=== PATIENT | male | born 1960 | race Caucasian/White ===

== ENCOUNTER 2022-06-18 03:06 | Outpatient (CLI) | payer MEDICAID, SELFPAY ==
[2022-06-18 13:35] LABS: Abs Immature Grans 0.03 10^3/uL (0.0-0.06); Absolute Basophil Count 0.06 10^3/uL (0.0-0.2); Absolute Eosinophil Count 0.32 10^3/uL (0.0-0.7); Absolute Lymphocyte Count 1.24 10^3/uL (1.2-3.4); Absolute Monocyte Count 1.08 10^3/uL (0.1-0.8); Absolute Neutrophil Count 7.35 10^3/uL (1.2-6.7); Basophils % 0.6; Eosinophils % 3.2; HCT 36.4 % (40.0-50.0); HGB 11.1 g/dL (13.5-17.5); Immature Grans % 0.3; Lymphocytes % 12.3; MCH 26.6 pg (27.0-33.0); MCHC 30.5 % (32.0-36.0); MCV 87 fL (80-95); MPV 9.4 fL (8.0-11.0); Monocytes % 10.7; Neutrophils % 72.9; Platelet Count 399 10^3/uL (130-400); RBC 4.17 10^6/uL (4.36-5.78); RDW 13.5 % (11.8-14.1); RDW-SD 43.4 fL; WBC 10.08 10^3/uL (4.4-10.8)
[2022-06-18 14:01] LABS: ALT 16 U/L (16-63); AST 22 U/L (15-37); Albumin 2.5 g/dL (3.4-5.0); Alkaline Phosphatase 105 U/L (46-116); Anion Gap 0.6 mmol/L (3-11); BUN 22 mg/dL (7-18); Bilirubin, Total 0.2 mg/dL (0.2-1.0); CO2 36.4 mmol/L (21.0-32.0); CREATININE 0.9 mg/dL (0.70-1.30); Calcium 8.4 mg/dL (8.5-10.1); Chloride 101 mmol/L (98-107); Estimated GFR 95.97 (mL/min/1.73m2); FREE T4 0.97 ng/dL (0.76-1.46); Glucose 196 mg/dL (74-106); Magnesium 2.1 mg/dL (1.8-2.4); Potassium 3.9 mmol/L (3.5-5.1); Sodium 138 mmol/L (136-145); TSH 2.33 uIU/mL (0.36-3.74); Total Protein 7.1 g/dL (6.4-8.2)
== END 2022-06-18 03:07 | disposition home or self-care (01) ==
LOC: LBO 03:06
PROVIDERS: Visit Provider Internal Medicine Medical Oncology
DX: C34.92 Malignant neoplasm of unspecified part of left bronchus or lung (principal); Z79.899 Other long term (current) drug therapy
CPT/HCPCS: 36415; 80053; 83735; 84439; 84443; 85025

== ENCOUNTER 2022-07-09 03:07 | Outpatient (CLI) | payer MEDICAID, SELFPAY ==
[2022-07-09 09:34] LABS: Abs Immature Grans 0.04 10^3/uL (0.0-0.06); Absolute Basophil Count 0.09 10^3/uL (0.0-0.2); Absolute Lymphocyte Count 1.55 10^3/uL (1.2-3.4); Absolute Monocyte Count 0.83 10^3/uL (0.1-0.8); Absolute Neutrophil Count 7.97 10^3/uL (1.2-6.7); Basophils % 0.8; Eosinophils % 3.9; HCT 37.2 % (40.0-50.0); HGB 11.3 g/dL (13.5-17.5); Immature Grans % 0.4; Lymphocytes % 14.2; MCH 24.9 pg (27.0-33.0); MCHC 30.4 % (32.0-36.0); MCV 82 fL (80-95); MPV 9.3 fL (8.0-11.0); Monocytes % 7.6; Neutrophils % 73.1; Platelet Count 439 10^3/uL (130-400); RBC 4.54 10^6/uL (4.36-5.78); RDW-SD 41.2 fL
[2022-07-09 09:35] LABS: Absolute Eosinophil Count 0.43 10^3/uL (0.0-0.7)
[2022-07-09 10:00] LABS: ALT 17 U/L (16-63); AST 19 U/L (15-37); Albumin 3.1 g/dL (3.4-5.0); Alkaline Phosphatase 76 U/L (46-116); Anion Gap 3.7 mmol/L (3-11); BUN 27 mg/dL (7-18); Bilirubin, Total 0.3 mg/dL (0.2-1.0); CO2 33.3 mmol/L (21.0-32.0); Calcium 9.3 mg/dL (8.5-10.1); Chloride 101 mmol/L (98-107); Estimated GFR 84.57 (mL/min/1.73m2); FREE T4 0.96 ng/dL (0.76-1.46); Glucose 144 mg/dL (74-106); Potassium 3.7 mmol/L (3.5-5.1); Sodium 138 mmol/L (136-145); TSH 1.98 uIU/mL (0.36-3.74)
== END 2022-07-09 03:08 | disposition home or self-care (01) ==
LOC: LBO 03:07
PROVIDERS: Visit Provider Internal Medicine Medical Oncology
DX: C34.92 Malignant neoplasm of unspecified part of left bronchus or lung (principal)
CPT/HCPCS: 36415; 80053; 83735; 84439; 84443; 85025

== ENCOUNTER 2022-09-10 14:39 | Outpatient (CLI) | payer MEDICAID, SELFPAY ==
--- NOTE | 2022-09-10 13:30 | DI.RAD_ITS ---
Exam(s) XR CHEST 2V PA LATERAL EXAM: XR CHEST 2V PA LATERAL CLINICAL HISTORY: LT LUNG CA, SOB, R06.02 TECHNIQUE: 2D digital imaging was performed of the chest. Two images were obtained. PA and lateral views were obtained. COMPARISON: No exams were available for comparison FINDINGS: MEDIASTINUM: There is right perihilar prominence. While this may represent the normal pulmonary vasc ulature, a central mass or adenopathy cannot be excluded. HEART: Normal. PULMONARY VASCULATURE: Normal. LUNGS: Linear infiltrate is seen in the left lingula. PLEURAL SPACE: No pleural effusion or pneumothorax. BONE:Within normal limits for the patient's age. OTHER FINDINGS:Normal. IMPRESSION: 1. There is a linear infiltrate lateral to the heart in the left lung base. This may represent atele ctasis, scarring or pneumonia. Please correlate clinically. 2. Right hilar prominence. While this may represent normal pulmonary vasculature, a central mass or adenopathy cannot be excluded. CT scan of the chest should be considered for further evaluation. DATA REPOSITORY: RADIATION DOSE DELIVERED:
== END 2022-09-10 14:59 ==
PROVIDERS: Visit Provider Nurse Practitioner Family
DX: R06.02 Shortness of breath (principal); R91.8 Other nonspecific abnormal finding of lung field
CPT/HCPCS: 71046

== ENCOUNTER 2022-10-01 04:50 | Outpatient (CLI) | payer MEDICAID, SELFPAY ==
[2022-10-01 09:58] LABS: Abs Immature Grans 0.03 10^3/uL (0.0-0.06); Absolute Basophil Count 0.05 10^3/uL (0.0-0.2); Absolute Eosinophil Count 0.24 10^3/uL (0.0-0.7); Absolute Neutrophil Count 5.75 10^3/uL (1.2-6.7); Basophils % 0.6; Eosinophils % 2.7; HCT 48.3 % (40.0-50.0); HGB 14.9 g/dL (13.5-17.5); Immature Grans % 0.3; Lymphocytes % 22.3; MCH 24.1 pg (27.0-33.0); MCHC 30.8 % (32.0-36.0); MCV 78 fL (80-95); MPV 9.8 fL (8.0-11.0); Neutrophils % 64.1; Platelet Count 260 10^3/uL (130-400); RBC 6.17 10^6/uL (4.36-5.78); RDW 15.3 % (11.8-14.1); RDW-SD 42.8 fL; WBC 8.97 10^3/uL (4.4-10.8)
[2022-10-01 10:33] LABS: ALT 19 U/L (16-63); AST 18 U/L (15-37); Albumin 3.4 g/dL (3.4-5.0); Alkaline Phosphatase 85 U/L (46-116); Anion Gap 6.3 mmol/L (3-11); BUN 34 mg/dL (7-18); Bilirubin, Total 0.4 mg/dL (0.2-1.0); CO2 28.7 mmol/L (21.0-32.0); CREATININE 1.2 mg/dL (0.70-1.30); Calcium 9.1 mg/dL (8.5-10.1); Chloride 106 mmol/L (98-107); Estimated GFR 67.95 (mL/min/1.73m2); Glucose 188 mg/dL (74-106); Potassium 4.4 mmol/L (3.5-5.1); Sodium 141 mmol/L (136-145); TSH 1.78 uIU/mL (0.36-3.74)
== END 2022-10-01 04:51 | disposition home or self-care (01) ==
PROVIDERS: Visit Provider Internal Medicine Medical Oncology
DX: C34.92 Malignant neoplasm of unspecified part of left bronchus or lung (principal)
CPT/HCPCS: 36415; 80053; 83735; 84439; 84443; 85025

== ENCOUNTER 2022-10-22 02:21 | Outpatient (CLI) | payer MEDICAID, SELFPAY ==
[2022-10-22 10:05] LABS: Abs Immature Grans 0.02 10^3/uL (0.0-0.06); Absolute Basophil Count 0.06 10^3/uL (0.0-0.2); Absolute Lymphocyte Count 1.92 10^3/uL (1.2-3.4); Absolute Monocyte Count 0.76 10^3/uL (0.1-0.8); Absolute Neutrophil Count 6.73 10^3/uL (1.2-6.7); Basophils % 0.6; Eosinophils % 3.1; HCT 46.8 % (40.0-50.0); HGB 14.5 g/dL (13.5-17.5); Immature Grans % 0.2; Lymphocytes % 19.6; MCH 24.5 pg (27.0-33.0); MCV 79 fL (80-95); MPV 9.9 fL (8.0-11.0); Monocytes % 7.8; Neutrophils % 68.7; Platelet Count 276 10^3/uL (130-400); RBC 5.92 10^6/uL (4.36-5.78); RDW 15.3 % (11.8-14.1); RDW-SD 43.4 fL; WBC 9.79 10^3/uL (4.4-10.8)
[2022-10-22 10:59] LABS: ALT 19 U/L (16-63); AST 15 U/L (15-37); Albumin 3.2 g/dL (3.4-5.0); Alkaline Phosphatase 110 U/L (46-116); Anion Gap 4.5 mmol/L (3-11); BUN 21 mg/dL (7-18); Bilirubin, Total 0.4 mg/dL (0.2-1.0); CO2 29.5 mmol/L (21.0-32.0); CREATININE 1.2 mg/dL (0.70-1.30); Calcium 8.7 mg/dL (8.5-10.1); Chloride 101 mmol/L (98-107); Estimated GFR 67.95 (mL/min/1.73m2); Glucose 343 mg/dL (74-106); Magnesium 1.8 mg/dL (1.8-2.4); Potassium 4.3 mmol/L (3.5-5.1); Sodium 135 mmol/L (136-145); TSH 2.03 uIU/mL (0.36-3.74); Total Protein 7.4 g/dL (6.4-8.2)
[2022-10-22 12:10] LABS: FREE T4 0.85 ng/dL (0.76-1.46)
== END 2022-10-22 02:22 | disposition home or self-care (01) ==
LOC: LBO 02:21
PROVIDERS: Visit Provider Internal Medicine Medical Oncology
DX: C34.92 Malignant neoplasm of unspecified part of left bronchus or lung (principal)
CPT/HCPCS: 36415; 80053; 83735; 84439; 84443; 85025

== ENCOUNTER 2022-11-12 04:27 | Outpatient (CLI) | payer MEDICAID, SELFPAY ==
[2022-11-12 10:11] LABS: Abs Immature Grans 0.02 10^3/uL (0.0-0.06); Absolute Basophil Count 0.07 10^3/uL (0.0-0.2); Absolute Eosinophil Count 0.25 10^3/uL (0.0-0.7); Absolute Lymphocyte Count 1.98 10^3/uL (1.2-3.4); Absolute Neutrophil Count 5.75 10^3/uL (1.2-6.7); Basophils % 0.8; Eosinophils % 2.8; HGB 14.7 g/dL (13.5-17.5); Immature Grans % 0.2; Lymphocytes % 22.1; MCH 24.3 pg (27.0-33.0); MCHC 30.6 % (32.0-36.0); MCV 79 fL (80-95); MPV 9.8 fL (8.0-11.0); Neutrophils % 64.1; Platelet Count 274 10^3/uL (130-400); RBC 6.06 10^6/uL (4.36-5.78); WBC 8.97 10^3/uL (4.4-10.8)
[2022-11-12 10:35] LABS: ALT 19 U/L (16-63); AST 11 U/L (15-37); Albumin 3.3 g/dL (3.4-5.0); Alkaline Phosphatase 92 U/L (46-116); Anion Gap 4.9 mmol/L (3-11); BUN 19 mg/dL (7-18); Bilirubin, Total 0.4 mg/dL (0.2-1.0); CO2 29.1 mmol/L (21.0-32.0); Calcium 8.9 mg/dL (8.5-10.1); Chloride 102 mmol/L (98-107); Estimated GFR 84.57 (mL/min/1.73m2); FREE T4 0.82 ng/dL (0.76-1.46); Glucose 274 mg/dL (74-106); Magnesium 2.1 mg/dL (1.8-2.4); Potassium 4.1 mmol/L (3.5-5.1); Sodium 136 mmol/L (136-145); TSH 2.32 uIU/mL (0.36-3.74); Total Protein 7.6 g/dL (6.4-8.2)
== END 2022-11-12 04:28 | disposition home or self-care (01) ==
LOC: LBO 04:27
PROVIDERS: Visit Provider Internal Medicine Medical Oncology
DX: C34.92 Malignant neoplasm of unspecified part of left bronchus or lung (principal)
CPT/HCPCS: 36415; 80053; 83735; 84439; 84443; 85025

== ENCOUNTER 2022-12-03 03:01 | Outpatient (CLI) | payer MEDICAID, SELFPAY ==
[2022-12-03 12:28] LABS: Abs Immature Grans 0.03 10^3/uL (0.0-0.06); Absolute Basophil Count 0.08 10^3/uL (0.0-0.2); Absolute Lymphocyte Count 2.19 10^3/uL (1.2-3.4); Absolute Neutrophil Count 6.75 10^3/uL (1.2-6.7); Basophils % 0.8; HCT 49.2 % (40.0-50.0); HGB 15.7 g/dL (13.5-17.5); Immature Grans % 0.3; Lymphocytes % 21.6; MCH 25.7 pg (27.0-33.0); MCHC 31.9 % (32.0-36.0); MCV 80 fL (80-95); MPV 9.9 fL (8.0-11.0); Monocytes % 7.9; Neutrophils % 66.4; Platelet Count 254 10^3/uL (130-400); RBC 6.12 10^6/uL (4.36-5.78); RDW 14.6 % (11.8-14.1); RDW-SD 42.1 fL; WBC 10.15 10^3/uL (4.4-10.8)
[2022-12-03 12:55] LABS: ALT 24 U/L (16-63); AST 15 U/L (15-37); Albumin 3.6 g/dL (3.4-5.0); Alkaline Phosphatase 101 U/L (46-116); Anion Gap 5.4 mmol/L (3-11); BUN 25 mg/dL (7-18); Bilirubin, Total 0.5 mg/dL (0.2-1.0); CO2 30.6 mmol/L (21.0-32.0); CREATININE 1.1 mg/dL (0.70-1.30); Calcium 9.2 mg/dL (8.5-10.1); Chloride 101 mmol/L (98-107); Estimated GFR 75.43 (mL/min/1.73m2); FREE T4 0.83 ng/dL (0.76-1.46); Glucose 156 mg/dL (74-106); Magnesium 1.9 mg/dL (1.8-2.4); Sodium 137 mmol/L (136-145); TSH 3.49 uIU/mL (0.36-3.74); Total Protein 8.1 g/dL (6.4-8.2)
== END 2022-12-03 03:02 | disposition home or self-care (01) ==
LOC: LBO 03:01
PROVIDERS: Visit Provider Internal Medicine Medical Oncology
DX: C34.92 Malignant neoplasm of unspecified part of left bronchus or lung (principal)
CPT/HCPCS: 36415; 80053; 83735; 84439; 84443; 85025

== ENCOUNTER 2022-12-24 04:45 | Outpatient (CLI) | payer MEDICAID, SELFPAY ==
[2022-12-24 09:39] LABS: Abs Immature Grans 0.03 10^3/uL (0.0-0.06); Absolute Basophil Count 0.08 10^3/uL (0.0-0.2); Absolute Lymphocyte Count 1.97 10^3/uL (1.2-3.4); Absolute Monocyte Count 0.91 10^3/uL (0.1-0.8); Absolute Neutrophil Count 6.85 10^3/uL (1.2-6.7); Basophils % 0.8; HCT 47.5 % (40.0-50.0); HGB 15.2 g/dL (13.5-17.5); Immature Grans % 0.3; Lymphocytes % 19.4; MCH 26.2 pg (27.0-33.0); MCV 82 fL (80-95); MPV 10.1 fL (8.0-11.0); Neutrophils % 67.5; Platelet Count 255 10^3/uL (130-400); RBC 5.81 10^6/uL (4.36-5.78); RDW 14.3 % (11.8-14.1); RDW-SD 42.8 fL; WBC 10.14 10^3/uL (4.4-10.8)
[2022-12-24 10:08] LABS: ALT 21 U/L (16-63); AST 15 U/L (15-37); Albumin 3.4 g/dL (3.4-5.0); Alkaline Phosphatase 95 U/L (46-116); Anion Gap 7.8 mmol/L (3-11); BUN 17 mg/dL (7-18); Bilirubin, Total 0.6 mg/dL (0.2-1.0); CO2 29.2 mmol/L (21.0-32.0); CREATININE 1.1 mg/dL (0.70-1.30); Calcium 8.9 mg/dL (8.5-10.1); Chloride 101 mmol/L (98-107); Estimated GFR 75.43 (mL/min/1.73m2); FREE T4 0.77 ng/dL (0.76-1.46); Glucose 240 mg/dL (74-106); Magnesium 1.9 mg/dL (1.8-2.4); Potassium 4.1 mmol/L (3.5-5.1); Sodium 138 mmol/L (136-145); TSH 2.96 uIU/mL (0.36-3.74); Total Protein 7.4 g/dL (6.4-8.2)
== END 2022-12-24 04:46 | disposition home or self-care (01) ==
LOC: LBO 04:45
PROVIDERS: Visit Provider Internal Medicine Medical Oncology
DX: C34.92 Malignant neoplasm of unspecified part of left bronchus or lung (principal); Z79.899 Other long term (current) drug therapy
CPT/HCPCS: 36415; 80053; 83735; 84439; 84443; 85025

== ENCOUNTER 2023-01-14 03:46 | Outpatient (CLI) | payer MEDICAID, SELFPAY ==
[2023-01-14 10:21] LABS: Abs Immature Grans 0.03 10^3/uL (0.0-0.06); Absolute Basophil Count 0.06 10^3/uL (0.0-0.2); Absolute Eosinophil Count 0.26 10^3/uL (0.0-0.7); Absolute Lymphocyte Count 2.14 10^3/uL (1.2-3.4); Absolute Monocyte Count 0.86 10^3/uL (0.1-0.8); Absolute Neutrophil Count 6.63 10^3/uL (1.2-6.7); Basophils % 0.6; Eosinophils % 2.6; HCT 47.2 % (40.0-50.0); HGB 15.1 g/dL (13.5-17.5); Immature Grans % 0.3; Lymphocytes % 21.4; MCH 26.4 pg (27.0-33.0); MCV 82 fL (80-95); Monocytes % 8.6; Neutrophils % 66.5; Platelet Count 260 10^3/uL (130-400); RBC 5.73 10^6/uL (4.36-5.78); RDW 13.6 % (11.8-14.1); RDW-SD 40.4 fL; WBC 9.98 10^3/uL (4.4-10.8)
[2023-01-14 10:59] LABS: ALT 25 U/L (16-63); AST 18 U/L (15-37); Albumin 3.3 g/dL (3.4-5.0); Alkaline Phosphatase 88 U/L (46-116); Anion Gap 6.8 mmol/L (3-11); BUN 13 mg/dL (7-18); Bilirubin, Total 0.5 mg/dL (0.2-1.0); CO2 28.2 mmol/L (21.0-32.0); CREATININE 1.1 mg/dL (0.70-1.30); Calcium 8.8 mg/dL (8.5-10.1); Chloride 102 mmol/L (98-107); Estimated GFR 75.43 (mL/min/1.73m2); FREE T4 0.81 ng/dL (0.76-1.46); Glucose 199 mg/dL (74-106); Magnesium 1.8 mg/dL (1.8-2.4); Potassium 3.9 mmol/L (3.5-5.1); Sodium 137 mmol/L (136-145); Total Protein 7.4 g/dL (6.4-8.2)
== END 2023-01-14 03:47 | disposition home or self-care (01) ==
LOC: LBO 03:46
PROVIDERS: Visit Provider Internal Medicine Medical Oncology
DX: C34.92 Malignant neoplasm of unspecified part of left bronchus or lung (principal); Z79.899 Other long term (current) drug therapy
CPT/HCPCS: 36415; 80053; 83735; 84439; 84443; 85025

== ENCOUNTER 2023-02-06 03:59 | Outpatient (CLI) | payer MEDICAID, SELFPAY ==
[2023-02-06 09:35] LABS: Abs Immature Grans 0.02 10^3/uL (0.0-0.06); Absolute Basophil Count 0.07 10^3/uL (0.0-0.2); Absolute Eosinophil Count 0.25 10^3/uL (0.0-0.7); Absolute Lymphocyte Count 1.57 10^3/uL (1.2-3.4); Absolute Monocyte Count 0.84 10^3/uL (0.1-0.8); Absolute Neutrophil Count 6.15 10^3/uL (1.2-6.7); Basophils % 0.8; Eosinophils % 2.8; Immature Grans % 0.2; Lymphocytes % 17.6; MCHC 31.3 % (32.0-36.0); MCV 83 fL (80-95); MPV 9.7 fL (8.0-11.0); Monocytes % 9.4; Neutrophils % 69.2; Platelet Count 257 10^3/uL (130-400); RBC 5.76 10^6/uL (4.36-5.78); RDW 13.2 % (11.8-14.1); RDW-SD 39.9 fL
[2023-02-06 09:59] LABS: ALT 20.5 U/L (16-63); AST 18 U/L (15-37); Albumin 3.4 g/dL (3.4-5.0); Alkaline Phosphatase 80 U/L (46-116); Anion Gap 6.8 mmol/L (3-11); BUN 33 mg/dL (7-18); Bilirubin, Total 0.7 mg/dL (0.2-1.0); CO2 29.2 mmol/L (21.0-32.0); Calcium 9.1 mg/dL (8.5-10.1); Chloride 101 mmol/L (98-107); Estimated GFR 84.57 (mL/min/1.73m2); FREE T4 0.78 ng/dL (0.76-1.46); Glucose 214 mg/dL (74-106); Magnesium 2.1 mg/dL (1.8-2.4); Potassium 4.4 mmol/L (3.5-5.1); Sodium 137 mmol/L (136-145); TSH 1.75 uIU/mL (0.36-3.74); Total Protein 7.4 g/dL (6.4-8.2)
== END 2023-02-06 04:00 | disposition home or self-care (01) ==
LOC: LBO 04:00
PROVIDERS: Visit Provider Internal Medicine Medical Oncology
DX: C34.92 Malignant neoplasm of unspecified part of left bronchus or lung (principal); Z79.899 Other long term (current) drug therapy
CPT/HCPCS: 36415; 80053; 83735; 84439; 84443; 85025

== ENCOUNTER 2023-02-25 02:15 | Outpatient (CLI) | payer MEDICAID, SELFPAY ==
[2023-02-25 10:56] LABS: Abs Immature Grans 0.02 10^3/uL (0.0-0.06); Absolute Basophil Count 0.09 10^3/uL (0.0-0.2); Absolute Eosinophil Count 0.32 10^3/uL (0.0-0.7); Absolute Lymphocyte Count 2.38 10^3/uL (1.2-3.4); Absolute Monocyte Count 0.72 10^3/uL (0.1-0.8); Absolute Neutrophil Count 6.59 10^3/uL (1.2-6.7); Basophils % 0.9; Eosinophils % 3.2; HCT 48.7 % (40.0-50.0); HGB 15.7 g/dL (13.5-17.5); Immature Grans % 0.2; Lymphocytes % 23.5; MCH 26.6 pg (27.0-33.0); MCHC 32.2 % (32.0-36.0); MCV 83 fL (80-95); MPV 10.2 fL (8.0-11.0); Monocytes % 7.1; Neutrophils % 65.1; Platelet Count 260 10^3/uL (130-400); RDW 12.8 % (11.8-14.1); RDW-SD 38.5 fL; WBC 10.12 10^3/uL (4.4-10.8)
[2023-02-25 11:23] LABS: ALT 25 U/L (16-63); AST 15 U/L (15-37); Albumin 3.5 g/dL (3.4-5.0); Alkaline Phosphatase 103 U/L (46-116); Anion Gap 6.4 mmol/L (3-11); BUN 24 mg/dL (7-18); Bilirubin, Total 0.3 mg/dL (0.2-1.0); CO2 28.6 mmol/L (21.0-32.0); CREATININE 1.3 mg/dL (0.70-1.30); Chloride 100 mmol/L (98-107); Estimated GFR 61.73 (mL/min/1.73m2); Glucose 291 mg/dL (74-106); Magnesium 2.1 mg/dL (1.8-2.4); Potassium 4.2 mmol/L (3.5-5.1); Sodium 135 mmol/L (136-145); Total Protein 7.8 g/dL (6.4-8.2)
== END 2023-02-25 02:16 | disposition home or self-care (01) ==
LOC: LBO 02:15
PROVIDERS: Visit Provider Internal Medicine Medical Oncology
DX: C34.92 Malignant neoplasm of unspecified part of left bronchus or lung (principal)
CPT/HCPCS: 36415; 80053; 83735; 84439; 84443; 85025

== ENCOUNTER 2023-03-18 04:47 | Outpatient (CLI) | payer MEDICAID, SELFPAY ==
[2023-03-18 09:39] LABS: Abs Immature Grans 0.03 10^3/uL (0.0-0.06); Absolute Basophil Count 0.05 10^3/uL (0.0-0.2); Absolute Eosinophil Count 0.28 10^3/uL (0.0-0.7); Absolute Lymphocyte Count 2.14 10^3/uL (1.2-3.4); Absolute Monocyte Count 0.79 10^3/uL (0.1-0.8); Absolute Neutrophil Count 7.03 10^3/uL (1.2-6.7); Basophils % 0.5; Eosinophils % 2.7; HGB 15.8 g/dL (13.5-17.5); Immature Grans % 0.3; Lymphocytes % 20.7; MCH 25.9 pg (27.0-33.0); MCHC 31.6 % (32.0-36.0); MCV 82 fL (80-95); MPV 9.7 fL (8.0-11.0); Monocytes % 7.7; Neutrophils % 68.1; Platelet Count 270 10^3/uL (130-400); RDW-SD 38.6 fL; WBC 10.32 10^3/uL (4.4-10.8)
[2023-03-18 10:03] LABS: ALT 19 U/L (16-63); AST 14 U/L (15-37); Albumin 3.5 g/dL (3.4-5.0); Alkaline Phosphatase 82 U/L (46-116); Anion Gap 4.8 mmol/L (3-11); BUN 24 mg/dL (7-18); Bilirubin, Total 0.5 mg/dL (0.2-1.0); CO2 29.2 mmol/L (21.0-32.0); CREATININE 1.2 mg/dL (0.70-1.30); Calcium 9.2 mg/dL (8.5-10.1); Chloride 98 mmol/L (98-107); Estimated GFR 67.95 (mL/min/1.73m2); Glucose 299 mg/dL (74-106); Sodium 132 mmol/L (136-145); Total Protein 7.8 g/dL (6.4-8.2)
[2023-03-18 10:21] LABS: Diff Comment Diff Reviewed; RBC Morphology Normal
== END 2023-03-18 04:48 | disposition home or self-care (01) ==
LOC: LBO 04:48
PROVIDERS: Visit Provider Internal Medicine Medical Oncology
DX: C34.92 Malignant neoplasm of unspecified part of left bronchus or lung (principal)
CPT/HCPCS: 36415; 80053; 83735; 84439; 84443; 85025

== ENCOUNTER 2023-04-08 01:05 | Outpatient (CLI) | payer MEDICAID, SELFPAY ==
[2023-04-08 09:34] LABS: Abs Immature Grans 0.02 10^3/uL (0.0-0.06); Absolute Basophil Count 0.07 10^3/uL (0.0-0.2); Absolute Eosinophil Count 0.26 10^3/uL (0.0-0.7); Absolute Lymphocyte Count 2.24 10^3/uL (1.2-3.4); Absolute Monocyte Count 0.86 10^3/uL (0.1-0.8); Absolute Neutrophil Count 6.16 10^3/uL (1.2-6.7); Basophils % 0.7; Eosinophils % 2.7; HCT 47.3 % (40.0-50.0); Immature Grans % 0.2; Lymphocytes % 23.3; MCH 26.4 pg (27.0-33.0); MCHC 31.7 % (32.0-36.0); MCV 83 fL (80-95); MPV 9.8 fL (8.0-11.0); Monocytes % 8.9; Neutrophils % 64.2; Platelet Count 274 10^3/uL (130-400); RBC 5.68 10^6/uL (4.36-5.78); RDW-SD 39.5 fL; WBC 9.61 10^3/uL (4.4-10.8)
[2023-04-08 10:12] LABS: ALT 21 U/L (16-63); AST 17 U/L (15-37); Albumin 3.4 g/dL (3.4-5.0); Alkaline Phosphatase 81 U/L (46-116); Anion Gap 7.1 mmol/L (3-11); BUN 19 mg/dL (7-18); Bilirubin, Total 0.6 mg/dL (0.2-1.0); CO2 25.9 mmol/L (21.0-32.0); Calcium 8.7 mg/dL (8.5-10.1); Chloride 100 mmol/L (98-107); Estimated GFR 84.57 (mL/min/1.73m2); FREE T4 0.92 ng/dL (0.76-1.46); Glucose 223 mg/dL (74-106); Magnesium 1.9 mg/dL (1.8-2.4); Sodium 133 mmol/L (136-145); TSH 2.52 uIU/mL (0.36-3.74); Total Protein 7.4 g/dL (6.4-8.2)
== END 2023-04-08 01:06 | disposition home or self-care (01) ==
PROVIDERS: Visit Provider Internal Medicine Medical Oncology
DX: C34.92 Malignant neoplasm of unspecified part of left bronchus or lung (principal)
CPT/HCPCS: 36415; 80053; 83735; 84439; 84443; 85025

== ENCOUNTER 2023-04-29 03:28 | Outpatient (CLI) | payer MEDICAID, SELFPAY ==
[2023-04-29 09:20] LABS: Abs Immature Grans 0.04 10^3/uL (0.0-0.06); Absolute Basophil Count 0.08 10^3/uL (0.0-0.2); Absolute Eosinophil Count 0.24 10^3/uL (0.0-0.7); Absolute Lymphocyte Count 1.62 10^3/uL (1.2-3.4); Absolute Monocyte Count 0.85 10^3/uL (0.1-0.8); Basophils % 0.7; Eosinophils % 2.2; HCT 49.4 % (40.0-50.0); HGB 15.7 g/dL (13.5-17.5); Immature Grans % 0.4; Lymphocytes % 14.6; MCH 26.3 pg (27.0-33.0); MCHC 31.8 % (32.0-36.0); MCV 83 fL (80-95); Monocytes % 7.6; Neutrophils % 74.5; Platelet Count 267 10^3/uL (130-400); RBC 5.98 10^6/uL (4.36-5.78); RDW 12.6 % (11.8-14.1); RDW-SD 38.1 fL; WBC 11.12 10^3/uL (4.4-10.8)
[2023-04-29 09:24] LABS: Absolute Neutrophil Count 8.28 10^3/uL (1.2-6.7)
[2023-04-29 09:53] LABS: ALT 20 U/L (16-63); AST 11 U/L (15-37); Albumin 3.4 g/dL (3.4-5.0); Alkaline Phosphatase 80 U/L (46-116); Anion Gap 7.1 mmol/L (3-11); BUN 14 mg/dL (7-18); Bilirubin, Total 0.7 mg/dL (0.2-1.0); CO2 29.9 mmol/L (21.0-32.0); CREATININE 1.1 mg/dL (0.70-1.30); Calcium 8.9 mg/dL (8.5-10.1); Chloride 99 mmol/L (98-107); Estimated GFR 75.43 (mL/min/1.73m2); FREE T4 0.87 ng/dL (0.76-1.46); Glucose 310 mg/dL (74-106); Magnesium 1.8 mg/dL (1.8-2.4); Sodium 136 mmol/L (136-145); TSH 3.28 uIU/mL (0.36-3.74); Total Protein 7.6 g/dL (6.4-8.2)
== END 2023-04-29 03:29 | disposition home or self-care (01) ==
LOC: LBO 03:29
PROVIDERS: Visit Provider Internal Medicine Medical Oncology
DX: C34.92 Malignant neoplasm of unspecified part of left bronchus or lung (principal)
CPT/HCPCS: 36415; 80053; 83735; 84439; 84443; 85025

== ENCOUNTER 2023-05-20 02:50 | Outpatient (CLI) | payer MEDICAID, SELFPAY ==
[2023-05-20 08:52] LABS: Abs Immature Grans 0.03 10^3/uL (0.0-0.06); Absolute Basophil Count 0.08 10^3/uL (0.0-0.2); Absolute Eosinophil Count 0.27 10^3/uL (0.0-0.7); Absolute Lymphocyte Count 1.93 10^3/uL (1.2-3.4); Absolute Monocyte Count 0.81 10^3/uL (0.1-0.8); Absolute Neutrophil Count 6.77 10^3/uL (1.2-6.7); Basophils % 0.8; Eosinophils % 2.7; HCT 48.4 % (40.0-50.0); HGB 15.7 g/dL (13.5-17.5); Immature Grans % 0.3; Lymphocytes % 19.5; MCH 26.8 pg (27.0-33.0); MCHC 32.4 % (32.0-36.0); MCV 83 fL (80-95); Monocytes % 8.2; Neutrophils % 68.5; Platelet Count 278 10^3/uL (130-400); RBC 5.85 10^6/uL (4.36-5.78); RDW 12.6 % (11.8-14.1); RDW-SD 37.9 fL; WBC 9.89 10^3/uL (4.4-10.8)
[2023-05-20 09:16] LABS: ALT 19 U/L (16-63); AST 12 U/L (15-37); Albumin 3.4 g/dL (3.4-5.0); Alkaline Phosphatase 101 U/L (46-116); Anion Gap 7.7 mmol/L (3-11); BUN 18 mg/dL (7-18); Bilirubin, Total 0.4 mg/dL (0.2-1.0); CO2 29.3 mmol/L (21.0-32.0); CREATININE 1.1 mg/dL (0.70-1.30); Calcium 9.3 mg/dL (8.5-10.1); Chloride 97 mmol/L (98-107); Estimated GFR 74.96 (mL/min/1.73m2); FREE T4 0.93 ng/dL (0.76-1.46); Glucose 365 mg/dL (74-106); Potassium 4.5 mmol/L (3.5-5.1); Sodium 134 mmol/L (136-145); TSH 2.33 uIU/mL (0.36-3.74); Total Protein 7.4 g/dL (6.4-8.2)
== END 2023-05-20 02:51 | disposition home or self-care (01) ==
LOC: LBO 02:50
PROVIDERS: Visit Provider Internal Medicine Medical Oncology
DX: C34.92 Malignant neoplasm of unspecified part of left bronchus or lung (principal)
CPT/HCPCS: 36415; 80053; 83735; 84439; 84443; 85025

== ENCOUNTER 2023-06-10 13:52 | Outpatient (CLI) | payer MEDICAID, SELFPAY ==
[2023-06-10 12:04] LABS: Abs Immature Grans 0.02 10^3/uL (0.0-0.06); Absolute Basophil Count 0.05 10^3/uL (0.0-0.2); Absolute Eosinophil Count 0.33 10^3/uL (0.0-0.7); Absolute Lymphocyte Count 2.24 10^3/uL (1.2-3.4); Absolute Monocyte Count 0.69 10^3/uL (0.1-0.8); Basophils % 0.5; Eosinophils % 3.6; HCT 46.5 % (40.0-50.0); HGB 14.7 g/dL (13.5-17.5); Immature Grans % 0.2; Lymphocytes % 24.5; MCH 26.3 pg (27.0-33.0); MCHC 31.6 % (32.0-36.0); MCV 83 fL (80-95); MPV 10.3 fL (8.0-11.0); Monocytes % 7.6; Neutrophils % 63.6; Platelet Count 221 10^3/uL (130-400); RDW 12.7 % (11.8-14.1); RDW-SD 38.4 fL; WBC 9.13 10^3/uL (4.4-10.8)
[2023-06-10 12:26] LABS: ALT 24 U/L (16-63); AST 14 U/L (15-37); Albumin 3.2 g/dL (3.4-5.0); Alkaline Phosphatase 71 U/L (46-116); Anion Gap 4.7 mmol/L (3-11); BUN 23 mg/dL (7-18); Bilirubin, Total 0.5 mg/dL (0.2-1.0); CO2 28.3 mmol/L (21.0-32.0); CREATININE 1.3 mg/dL (0.70-1.30); Calcium 8.4 mg/dL (8.5-10.1); Chloride 103 mmol/L (98-107); Estimated GFR 61.35 (mL/min/1.73m2); FREE T4 0.79 ng/dL (0.76-1.46); Glucose 218 mg/dL (74-106); Potassium 4.5 mmol/L (3.5-5.1); Sodium 136 mmol/L (136-145); TSH 2.03 uIU/mL (0.36-3.74); Total Protein 7.1 g/dL (6.4-8.2)
== END 2023-06-10 13:53 | disposition home or self-care (01) ==
LOC: LBO 13:53
PROVIDERS: Visit Provider Nurse Practitioner Family
DX: C34.92 Malignant neoplasm of unspecified part of left bronchus or lung (principal); Z79.899 Other long term (current) drug therapy
CPT/HCPCS: 36415; 80053; 83735; 84439; 84443; 85025

== ENCOUNTER 2023-07-01 12:28 | Outpatient (CLI) | payer MEDICAID, SELFPAY ==
[2023-07-01 12:12] LABS: Abs Immature Grans 0.02 10^3/uL (0.0-0.06); Absolute Basophil Count 0.07 10^3/uL (0.0-0.2); Absolute Eosinophil Count 0.33 10^3/uL (0.0-0.7); Absolute Monocyte Count 0.93 10^3/uL (0.1-0.8); Absolute Neutrophil Count 6.18 10^3/uL (1.2-6.7); Basophils % 0.7; Eosinophils % 3.3; HCT 50.1 % (40.0-50.0); HGB 15.8 g/dL (13.5-17.5); Immature Grans % 0.2; Lymphocytes % 24.2; MCH 26.1 pg (27.0-33.0); MCHC 31.5 % (32.0-36.0); MCV 83 fL (80-95); MPV 9.9 fL (8.0-11.0); Monocytes % 9.4; Neutrophils % 62.2; RDW 12.9 % (11.8-14.1); RDW-SD 38.9 fL; WBC 9.93 10^3/uL (4.4-10.8)
[2023-07-01 12:24] LABS: ALT 21 U/L (16-63); AST 19 U/L (15-37); Albumin 3.4 g/dL (3.4-5.0); Anion Gap 7.5 mmol/L (3-11); BUN 22 mg/dL (7-18); CO2 28.5 mmol/L (21.0-32.0); Calcium 9.2 mg/dL (8.5-10.1); Chloride 103 mmol/L (98-107); Estimated GFR 84.05 (mL/min/1.73m2); Glucose 155 mg/dL (74-106); Sodium 139 mmol/L (136-145)
[2023-07-01 12:29] LABS: RBC 6.05 10^6/uL (4.36-5.78)
[2023-07-01 12:30] LABS: Diff Comment Diff Reviewed; Platelet Count 225 10^3/uL (130-400); RBC Morphology Normal
[2023-07-01 12:45] LABS: Alkaline Phosphatase 85 U/L (46-116); Bilirubin, Total 0.6 mg/dL (0.2-1.0); FREE T4 0.89 ng/dL (0.76-1.46); TSH 2.42 uIU/mL (0.36-3.74); Total Protein 7.6 g/dL (6.4-8.2)
== END 2023-07-01 12:29 | disposition home or self-care (01) ==
LOC: LBO 12:29
PROVIDERS: Visit Provider Nurse Practitioner Family
DX: C34.92 Malignant neoplasm of unspecified part of left bronchus or lung (principal); Z79.899 Other long term (current) drug therapy
CPT/HCPCS: 36415; 80053; 83735; 84439; 84443; 85025

== ENCOUNTER 2023-07-24 01:30 | Outpatient (CLI) | payer MEDICAID, SELFPAY ==
[2023-07-24 09:43] LABS: Abs Immature Grans 0.03 10^3/uL (0.0-0.06); Absolute Basophil Count 0.05 10^3/uL (0.0-0.2); Absolute Eosinophil Count 0.33 10^3/uL (0.0-0.7); Absolute Lymphocyte Count 1.54 10^3/uL (1.2-3.4); Absolute Monocyte Count 0.88 10^3/uL (0.1-0.8); Absolute Neutrophil Count 7.17 10^3/uL (1.2-6.7); Basophils % 0.5; Eosinophils % 3.3; HCT 49.6 % (40.0-50.0); Immature Grans % 0.3; Lymphocytes % 15.4; MCH 26.5 pg (27.0-33.0); MCHC 32.3 % (32.0-36.0); MCV 82 fL (80-95); MPV 10.2 fL (8.0-11.0); Monocytes % 8.8; Neutrophils % 71.7; Platelet Count 279 10^3/uL (130-400); RDW 12.7 % (11.8-14.1); RDW-SD 38.2 fL
[2023-07-24 09:46] LABS: RBC 6.03 10^6/uL (4.36-5.78)
[2023-07-24 10:27] LABS: ALT 17 U/L (16-63); AST 14 U/L (15-37); Albumin 3.3 g/dL (3.4-5.0); Alkaline Phosphatase 101 U/L (46-116); Anion Gap 7.1 mmol/L (3-11); BUN 25 mg/dL (7-18); Bilirubin, Total 0.6 mg/dL (0.2-1.0); CO2 27.9 mmol/L (21.0-32.0); CREATININE 1.2 mg/dL (0.70-1.30); Calcium 9.1 mg/dL (8.5-10.1); Chloride 101 mmol/L (98-107); Estimated GFR 67.53 (mL/min/1.73m2); FREE T4 0.91 ng/dL (0.76-1.46); Glucose 337 mg/dL (74-106); Potassium 4.2 mmol/L (3.5-5.1); Sodium 136 mmol/L (136-145); TSH 2.04 uIU/mL (0.36-3.74); Total Protein 7.8 g/dL (6.4-8.2)
== END 2023-07-24 01:31 | disposition home or self-care (01) ==
PROVIDERS: Visit Provider Nurse Practitioner Family
DX: C34.92 Malignant neoplasm of unspecified part of left bronchus or lung (principal); Z79.899 Other long term (current) drug therapy
CPT/HCPCS: 36415; 80053; 83735; 84439; 84443; 85025

== ENCOUNTER 2023-08-12 03:04 | Outpatient (CLI) | payer MEDICAID, SELFPAY ==
[2023-08-12 09:32] LABS: Abs Immature Grans 0.03 10^3/uL (0.0-0.06); Absolute Basophil Count 0.09 10^3/uL (0.0-0.2); Absolute Eosinophil Count 0.39 10^3/uL (0.0-0.7); Absolute Lymphocyte Count 1.93 10^3/uL (1.2-3.4); Absolute Monocyte Count 0.87 10^3/uL (0.1-0.8); Absolute Neutrophil Count 6.52 10^3/uL (1.2-6.7); Basophils % 0.9; HCT 49.1 % (40.0-50.0); HGB 15.6 g/dL (13.5-17.5); Immature Grans % 0.3; Lymphocytes % 19.6; MCH 26.4 pg (27.0-33.0); MCHC 31.8 % (32.0-36.0); MCV 83 fL (80-95); Monocytes % 8.9; Neutrophils % 66.3; Platelet Count 263 10^3/uL (130-400); RDW 12.7 % (11.8-14.1); RDW-SD 38.9 fL; WBC 9.83 10^3/uL (4.4-10.8)
[2023-08-12 09:58] LABS: ALT 19 U/L (16-63); AST 17 U/L (15-37); Albumin 3.4 g/dL (3.4-5.0); Alkaline Phosphatase 103 U/L (46-116); Anion Gap 7.4 mmol/L (3-11); BUN 23 mg/dL (7-18); Bilirubin, Total 0.5 mg/dL (0.2-1.0); CO2 28.6 mmol/L (21.0-32.0); CREATININE 1.2 mg/dL (0.70-1.30); Calcium 8.9 mg/dL (8.5-10.1); Chloride 100 mmol/L (98-107); Estimated GFR 67.53 (mL/min/1.73m2); FREE T4 0.85 ng/dL (0.76-1.46); Glucose 262 mg/dL (74-106); Magnesium 2.1 mg/dL (1.8-2.4); Potassium 4.5 mmol/L (3.5-5.1); Sodium 136 mmol/L (136-145); TSH 5.13 uIU/Ml (0.36-3.74); Total Protein 7.6 g/dL (6.4-8.2)
== END 2023-08-12 03:05 | disposition home or self-care (01) ==
PROVIDERS: Visit Provider Nurse Practitioner Family
DX: C34.92 Malignant neoplasm of unspecified part of left bronchus or lung (principal); Z79.899 Other long term (current) drug therapy
CPT/HCPCS: 36415; 80053; 83735; 84439; 84443; 85025

== ENCOUNTER 2023-09-02 05:54 | Outpatient (CLI) | payer MEDICAID, SELFPAY ==
[2023-09-02 12:07] LABS: Abs Immature Grans 0.02 10^3/uL (0.0-0.06); Absolute Basophil Count 0.08 10^3/uL (0.0-0.2); Absolute Eosinophil Count 0.36 10^3/uL (0.0-0.7); Absolute Lymphocyte Count 1.97 10^3/uL (1.2-3.4); Absolute Monocyte Count 0.89 10^3/uL (0.1-0.8); Basophils % 0.8; Eosinophils % 3.7; HCT 50.3 % (40.0-50.0); HGB 15.5 g/dL (13.5-17.5); Immature Grans % 0.2; Lymphocytes % 20.3; MCH 26.2 pg (27.0-33.0); MCHC 30.8 % (32.0-36.0); MCV 85 fL (80-95); MPV 9.8 fL (8.0-11.0); Monocytes % 9.2; Neutrophils % 65.8; Platelet Count 218 10^3/uL (130-400); RBC 5.91 10^6/uL (4.36-5.78); RDW 12.9 % (11.8-14.1); RDW-SD 40.3 fL; WBC 9.72 10^3/uL (4.4-10.8)
[2023-09-02 12:32] LABS: ALT 21 U/L (16-63); AST 13 U/L (15-37); Albumin 3.4 g/dL (3.4-5.0); Alkaline Phosphatase 89 U/L (46-116); Anion Gap 6.8 mmol/L (3-11); BUN 27 mg/dL (7-18); Bilirubin, Total 0.4 mg/dL (0.2-1.0); CO2 30.2 mmol/L (21.0-32.0); CREATININE 1.3 mg/dL (0.70-1.30); Calcium 8.7 mg/dL (8.5-10.1); Chloride 106 mmol/L (98-107); Estimated GFR 61.35 (mL/min/1.73m2); FREE T4 0.85 ng/dL (0.76-1.46); Glucose 158 mg/dL (74-106); Magnesium 2.2 mg/dL (1.8-2.4); Potassium 4.3 mmol/L (3.5-5.1); Sodium 143 mmol/L (136-145); TSH 1.54 uIU/Ml (0.36-3.74); Total Protein 7.3 g/dL (6.4-8.2)
== END 2023-09-02 05:55 | disposition home or self-care (01) ==
PROVIDERS: Visit Provider Nurse Practitioner Family
DX: C34.92 Malignant neoplasm of unspecified part of left bronchus or lung (principal)
CPT/HCPCS: 36415; 80053; 83735; 84439; 84443; 85025

== ENCOUNTER 2023-09-30 05:45 | Outpatient (CLI) | payer MEDICAID, SELFPAY ==
[2023-09-30 09:48] LABS: Abs Immature Grans 0.02 10^3/uL (0.0-0.06); Absolute Basophil Count 0.07 10^3/uL (0.0-0.2); Absolute Eosinophil Count 0.39 10^3/uL (0.0-0.7); Absolute Lymphocyte Count 1.89 10^3/uL (1.2-3.4); Absolute Monocyte Count 0.75 10^3/uL (0.1-0.8); Absolute Neutrophil Count 6.79 10^3/uL (1.2-6.7); Basophils % 0.7; Eosinophils % 3.9; HGB 15.6 g/dL (13.5-17.5); Immature Grans % 0.2; Lymphocytes % 19.1; MCH 26.4 pg (27.0-33.0); MCHC 31.8 % (32.0-36.0); MCV 83 fL (80-95); MPV 10.2 fL (8.0-11.0); Monocytes % 7.6; Neutrophils % 68.5; Platelet Count 257 10^3/uL (130-400); RBC 5.91 10^6/uL (4.36-5.78); RDW 12.6 % (11.8-14.1); RDW-SD 38.4 fL; WBC 9.91 10^3/uL (4.4-10.8)
[2023-09-30 10:12] LABS: ALT 24 U/L (16-63); AST 14 U/L (15-37); Albumin 3.4 g/dL (3.4-5.0); Alkaline Phosphatase 88 U/L (46-116); Anion Gap 5.6 mmol/L (3-11); BUN 24 mg/dL (7-18); Bilirubin, Total 0.6 mg/dL (0.2-1.0); CO2 29.4 mmol/L (21.0-32.0); Calcium 8.5 mg/dL (8.5-10.1); Chloride 100 mmol/L (98-107); Estimated GFR 84.05 (mL/min/1.73m2); FREE T4 0.82 ng/dL (0.76-1.46); Glucose 280 mg/dL (74-106); Magnesium 2.1 mg/dL (1.8-2.4); Potassium 4.3 mmol/L (3.5-5.1); Sodium 135 mmol/L (136-145); TSH 2.06 uIU/Ml (0.36-3.74); Total Protein 7.4 g/dL (6.4-8.2)
== END 2023-09-30 05:46 | disposition home or self-care (01) ==
LOC: LBO 05:45
PROVIDERS: Nurse Practitioner Family; Visit Provider Internal Medicine Medical Oncology
DX: Z79.899 Other long term (current) drug therapy (principal); C34.92 Malignant neoplasm of unspecified part of left bronchus or lung
CPT/HCPCS: 36415; 80053; 83735; 84439; 84443; 85025

== ENCOUNTER 2023-10-21 12:14 | Outpatient (CLI) | payer MEDICAID, SELFPAY ==
[2023-10-21 11:58] LABS: Abs Immature Grans 0.02 10^3/uL (0.0-0.06); Absolute Basophil Count 0.08 10^3/uL (0.0-0.2); Absolute Eosinophil Count 0.36 10^3/uL (0.0-0.7); Absolute Lymphocyte Count 1.72 10^3/uL (1.2-3.4); Absolute Monocyte Count 0.79 10^3/uL (0.1-0.8); Basophils % 0.8 %; Eosinophils % 3.7 %; HCT 50.3 % (40.0-50.0); HGB 15.7 g/dL (13.5-17.5); Immature Grans % 0.2 %; Lymphocytes % 17.8 %; MCH 26.2 pg (27.0-33.0); MCHC 31.2 % (32.0-36.0); MCV 84 fL (80-95); MPV 9.9 fL (8.0-11.0); Monocytes % 8.2 %; Neutrophils % 69.3 %; Platelet Count 247 10^3/uL (130-400); RBC 5.99 10^6/uL (4.36-5.78); RDW 12.7 % (11.8-14.1); WBC 9.67 10^3/uL (4.4-10.8)
[2023-10-21 12:25] LABS: ALT 29 U/L (16-63); AST 18 U/L (15-37); Albumin 3.3 g/dL (3.4-5.0); Alkaline Phosphatase 87 U/L (46-116); Anion Gap 4.1 mmol/L (3-11); BUN 21 mg/dL (7-18); Bilirubin, Total 0.6 mg/dL (0.2-1.0); CO2 30.9 mmol/L (21.0-32.0); Calcium 8.4 mg/dL (8.5-10.1); Chloride 103 mmol/L (98-107); Estimated GFR 84.05 (mL/min/1.73m2); FREE T4 0.81 ng/dL (0.76-1.46); Glucose 179 mg/dL (74-106); Magnesium 1.7 mg/dL (1.8-2.4); Potassium 4.1 mmol/L (3.5-5.1); Sodium 138 mmol/L (136-145); TSH 3.01 uIU/Ml (0.36-3.74); Total Protein 7.2 g/dL (6.4-8.2)
== END 2023-10-21 12:15 | disposition home or self-care (01) ==
LOC: LBO 12:16
PROVIDERS: Visit Provider Nurse Practitioner Family
DX: Z79.899 Other long term (current) drug therapy (principal); C34.92 Malignant neoplasm of unspecified part of left bronchus or lung
CPT/HCPCS: 36415; 80053; 83735; 84439; 84443; 85025

== ENCOUNTER 2023-11-13 01:26 | Outpatient (CLI) | payer MEDICAID, SELFPAY ==
[2023-11-13 12:24] LABS: Abs Immature Grans 0.03 10^3/uL (0.0-0.06); Absolute Basophil Count 0.07 10^3/uL (0.0-0.2); Absolute Lymphocyte Count 2.05 10^3/uL (1.2-3.4); Absolute Monocyte Count 0.91 10^3/uL (0.1-0.8); Basophils % 0.6 %; Eosinophils % 4.7 %; HGB 15.6 g/dL (13.5-17.5); Immature Grans % 0.3 %; Lymphocytes % 18.3 %; MCH 26.6 pg (27.0-33.0); MCHC 31.8 % (32.0-36.0); MCV 84 fL (80-95); MPV 10.2 fL (8.0-11.0); Monocytes % 8.1 %; Platelet Count 226 10^3/uL (130-400); RBC 5.86 10^6/uL (4.36-5.78); RDW 13.2 % (11.8-14.1); RDW-SD 40.5 fL; WBC 11.18 10^3/uL (4.4-10.8)
[2023-11-13 12:31] LABS: Absolute Eosinophil Count 0.53 10^3/uL (0.0-0.7)
[2023-11-13 12:55] LABS: ALT 30 U/L (16-63); AST 16 U/L (15-37); Albumin 3.2 g/dL (3.4-5.0); Alkaline Phosphatase 82 U/L (46-116); Anion Gap 5.9 mmol/L (3-11); BUN 22 mg/dL (7-18); Bilirubin, Total 0.5 mg/dL (0.2-1.0); CO2 29.1 mmol/L (21.0-32.0); Calcium 8.7 mg/dL (8.5-10.1); Chloride 106 mmol/L (98-107); Estimated GFR 84.05 (mL/min/1.73m2); FREE T4 0.91 ng/dL (0.76-1.46); Glucose 161 mg/dL (74-106); Magnesium 1.9 mg/dL (1.8-2.4); Potassium 4.3 mmol/L (3.5-5.1); Sodium 141 mmol/L (136-145); TSH 1.75 uIU/Ml (0.36-3.74); Total Protein 7.1 g/dL (6.4-8.2)
== END 2023-11-13 01:27 | disposition home or self-care (01) ==
PROVIDERS: Visit Provider Nurse Practitioner Family
DX: Z79.899 Other long term (current) drug therapy (principal); C34.92 Malignant neoplasm of unspecified part of left bronchus or lung
CPT/HCPCS: 36415; 80053; 83735; 84439; 84443; 85025

== ENCOUNTER 2023-12-02 03:53 | Outpatient (CLI) | payer MEDICAID, SELFPAY ==
[2023-12-02 12:17] LABS: Abs Immature Grans 0.02 10^3/uL (0.0-0.06); Absolute Basophil Count 0.07 10^3/uL (0.0-0.2); Absolute Lymphocyte Count 2.27 10^3/uL (1.2-3.4); Absolute Monocyte Count 0.87 10^3/uL (0.1-0.8); Absolute Neutrophil Count 5.88 10^3/uL (1.2-6.7); Basophils % 0.7 %; Eosinophils % 4.2 %; HCT 49.6 % (40.0-50.0); HGB 15.8 g/dL (13.5-17.5); Immature Grans % 0.2 %; Lymphocytes % 23.9 %; MCH 26.4 pg (27.0-33.0); MCHC 31.9 % (32.0-36.0); MCV 83 fL (80-95); Monocytes % 9.1 %; Neutrophils % 61.9 %; Platelet Count 233 10^3/uL (130-400); RBC 5.98 10^6/uL (4.36-5.78); RDW 13.2 % (11.8-14.1); RDW-SD 39.7 fL; WBC 9.51 10^3/uL (4.4-10.8)
[2023-12-02 12:44] LABS: ALT 22 U/L (16-63); AST 9 U/L (15-37); Albumin 3.3 g/dL (3.4-5.0); Alkaline Phosphatase 93 U/L (46-116); Anion Gap 8.2 mmol/L (3-11); BUN 16 mg/dL (7-18); Bilirubin, Total 0.34 mg/dL (0.2-1.0); CO2 27.8 mmol/L (21.0-32.0); CREATININE 0.9 mg/dL (0.70-1.30); Calcium 8.7 mg/dL (8.5-10.1); Chloride 104 mmol/L (98-107); Estimated GFR 95.37 (mL/min/1.73m2); FREE T4 0.93 ng/dL (0.76-1.46); Glucose 168 mg/dL (74-106); Magnesium 1.7 mg/dL (1.8-2.4); Sodium 140 mmol/L (136-145); TSH 2.33 uIU/Ml (0.36-3.74); Total Protein 7.1 g/dL (6.4-8.2)
== END 2023-12-02 03:54 | disposition home or self-care (01) ==
LOC: LBO 03:54
PROVIDERS: Visit Provider Internal Medicine Medical Oncology
DX: C34.92 Malignant neoplasm of unspecified part of left bronchus or lung (principal); Z79.899 Other long term (current) drug therapy
CPT/HCPCS: 36415; 80053; 83735; 84439; 84443; 85025

== ENCOUNTER 2023-12-25 01:25 | Outpatient (CLI) | payer MEDICAID, SELFPAY ==
[2023-12-25 09:17] LABS: Abs Immature Grans 0.03 10^3/uL (0.0-0.06); Absolute Basophil Count 0.07 10^3/uL (0.0-0.2); Absolute Eosinophil Count 0.28 10^3/uL (0.0-0.7); Absolute Lymphocyte Count 1.89 10^3/uL (1.2-3.4); Absolute Monocyte Count 0.96 10^3/uL (0.1-0.8); Absolute Neutrophil Count 5.85 10^3/uL (1.2-6.7); Basophils % 0.8 %; Eosinophils % 3.1 %; HCT 50.7 % (40.0-50.0); HGB 15.9 g/dL (13.5-17.5); Immature Grans % 0.3 %; Lymphocytes % 20.8 %; MCH 26.4 pg (27.0-33.0); MCHC 31.4 % (32.0-36.0); MCV 84 fL (80-95); Monocytes % 10.6 %; Neutrophils % 64.4 %; Platelet Count 239 10^3/uL (130-400); RBC 6.02 10^6/uL (4.36-5.78); WBC 9.08 10^3/uL (4.4-10.8)
[2023-12-25 09:41] LABS: ALT 28 U/L (16-63); AST 15 U/L (15-37); Albumin 3.4 g/dL (3.4-5.0); Alkaline Phosphatase 93 U/L (46-116); BUN 16 mg/dL (7-18); Bilirubin, Total 0.57 mg/dL (0.2-1.0); CREATININE 0.9 mg/dL (0.70-1.30); Calcium 8.8 mg/dL (8.5-10.1); Chloride 103 mmol/L (98-107); Estimated GFR 95.37 (mL/min/1.73m2); FREE T4 0.95 ng/dL (0.76-1.46); Glucose 123 mg/dL (74-106); Magnesium 1.9 mg/dL (1.8-2.4); Potassium 4.2 mmol/L (3.5-5.1); Sodium 139 mmol/L (136-145); TSH 1.91 uIU/Ml (0.36-3.74); Total Protein 7.3 g/dL (6.4-8.2)
== END 2023-12-25 01:26 | disposition home or self-care (01) ==
LOC: LBO 01:26
PROVIDERS: Nurse Practitioner Family; Visit Provider Internal Medicine Medical Oncology
DX: C34.92 Malignant neoplasm of unspecified part of left bronchus or lung (principal); Z79.899 Other long term (current) drug therapy
CPT/HCPCS: 36415; 80053; 83735; 84439; 84443; 85025

== ENCOUNTER 2024-01-13 09:13 | Outpatient (CLI) | payer MEDICAID, SELFPAY ==
[2024-01-13 08:57] LABS: Abs Immature Grans 0.02 10^3/uL (0.0-0.06); Absolute Basophil Count 0.08 10^3/uL (0.0-0.2); Absolute Eosinophil Count 0.37 10^3/uL (0.0-0.7); Absolute Lymphocyte Count 1.87 10^3/uL (1.2-3.4); Absolute Monocyte Count 0.94 10^3/uL (0.1-0.8); Absolute Neutrophil Count 7.36 10^3/uL (1.2-6.7); Basophils % 0.8 %; Eosinophils % 3.5 %; HCT 51.3 % (40.0-50.0); HGB 15.9 g/dL (13.5-17.5); Immature Grans % 0.2 %; Lymphocytes % 17.6 %; MCH 26.2 pg (27.0-33.0); MCV 84 fL (80-95); MPV 9.7 fL (8.0-11.0); Monocytes % 8.8 %; Neutrophils % 69.1 %; Platelet Count 230 10^3/uL (130-400); RDW 12.8 % (11.8-14.1); RDW-SD 39.5 fL; WBC 10.64 10^3/uL (4.4-10.8)
[2024-01-13 08:59] LABS: RBC 6.08 10^6/uL (4.36-5.78)
[2024-01-13 10:24] LABS: ALT 27 U/L (16-63); AST 21 U/L (15-37); Albumin 3.4 g/dL (3.4-5.0); Alkaline Phosphatase 85 U/L (46-116); Anion Gap 5.4 mmol/L (3-11); BUN 21 mg/dL (7-18); Bilirubin, Total 0.64 mg/dL (0.2-1.0); CO2 30.6 mmol/L (21.0-32.0); Calcium 8.9 mg/dL (8.5-10.1); Chloride 102 mmol/L (98-107); Estimated GFR 84.05 (mL/min/1.73m2); Glucose 187 mg/dL (74-106); Potassium 4.4 mmol/L (3.5-5.1); Sodium 138 mmol/L (136-145); TSH 4.02 uIU/Ml (0.36-3.74); Total Protein 7.3 g/dL (6.4-8.2)
== END 2024-01-13 09:14 | disposition home or self-care (01) ==
LOC: LBO 09:13
PROVIDERS: Visit Provider Nurse Practitioner Family
DX: Z79.899 Other long term (current) drug therapy (principal); C34.92 Malignant neoplasm of unspecified part of left bronchus or lung
CPT/HCPCS: 36415; 80053; 83735; 84439; 84443; 85025

== ENCOUNTER 2024-02-05 03:02 | Outpatient (CLI) | payer MEDICAID, SELFPAY ==
[2024-02-05 10:12] LABS: Abs Immature Grans 0.02 10^3/uL (0.0-0.06); Absolute Basophil Count 0.06 10^3/uL (0.0-0.2); Absolute Eosinophil Count 0.33 10^3/uL (0.0-0.7); Absolute Lymphocyte Count 1.25 10^3/uL (1.2-3.4); Absolute Monocyte Count 0.98 10^3/uL (0.1-0.8); Absolute Neutrophil Count 5.24 10^3/uL (1.2-6.7); Basophils % 0.8 %; Eosinophils % 4.2 %; HCT 48.5 % (40.0-50.0); HGB 15.2 g/dL (13.5-17.5); Immature Grans % 0.3 %; Lymphocytes % 15.9 %; MCH 26.2 pg (27.0-33.0); MCHC 31.3 % (32.0-36.0); MCV 84 fL (80-95); MPV 10.1 fL (8.0-11.0); Monocytes % 12.4 %; Neutrophils % 66.4 %; Platelet Count 172 10^3/uL (130-400); RDW 12.9 % (11.8-14.1); RDW-SD 39.5 fL; WBC 7.88 10^3/uL (4.4-10.8)
[2024-02-05 10:39] LABS: ALT 32 U/L (16-63); AST 29 U/L (15-37); Albumin 3.2 g/dL (3.4-5.0); Alkaline Phosphatase 98 U/L (46-116); Anion Gap 5.6 mmol/L (3-11); BUN 21 mg/dL (7-18); CO2 28.4 mmol/L (21.0-32.0); CREATININE 1.1 mg/dL (0.70-1.30); Calcium 8.7 mg/dL (8.5-10.1); Chloride 102 mmol/L (98-107); Estimated GFR 74.96 (mL/min/1.73m2); FREE T4 0.81 ng/dL (0.76-1.46); Glucose 216 mg/dL (74-106); Magnesium 1.9 mg/dL (1.8-2.4); Potassium 4.1 mmol/L (3.5-5.1); Sodium 136 mmol/L (136-145); TSH 1.63 uIU/Ml (0.36-3.74); Total Protein 7.1 g/dL (6.4-8.2)
== END 2024-02-05 03:03 | disposition home or self-care (01) ==
PROVIDERS: Visit Provider Nurse Practitioner Family
DX: C34.92 Malignant neoplasm of unspecified part of left bronchus or lung (principal); Z79.899 Other long term (current) drug therapy
CPT/HCPCS: 36415; 80053; 83735; 84439; 84443; 85025

== ENCOUNTER 2024-02-26 02:24 | Outpatient (CLI) | payer MEDICAID, SELFPAY ==
[2024-02-26 12:10] LABS: Abs Immature Grans 0.03 10^3/uL (0.0-0.06); Absolute Basophil Count 0.07 10^3/uL (0.0-0.2); Absolute Eosinophil Count 0.21 10^3/uL (0.0-0.7); Absolute Lymphocyte Count 2.16 10^3/uL (1.2-3.4); Absolute Monocyte Count 0.83 10^3/uL (0.1-0.8); Absolute Neutrophil Count 6.58 10^3/uL (1.2-6.7); Basophils % 0.7 %; Eosinophils % 2.1 %; HCT 52.5 % (40.0-50.0); HGB 16.2 g/dL (13.5-17.5); Immature Grans % 0.3 %; Lymphocytes % 21.9 %; MCH 25.9 pg (27.0-33.0); MCHC 30.9 % (32.0-36.0); MCV 84 fL (80-95); MPV 9.6 fL (8.0-11.0); Monocytes % 8.4 %; Neutrophils % 66.6 %; Platelet Count 318 10^3/uL (130-400); RBC 6.26 10^6/uL (4.36-5.78); RDW 12.5 % (11.8-14.1); RDW-SD 38.6 fL; WBC 9.88 10^3/uL (4.4-10.8)
[2024-02-26 12:26] LABS: ALT 24 U/L (16-63); AST 7 U/L (15-37); Albumin 3.5 g/dL (3.4-5.0); Alkaline Phosphatase 111 U/L (46-116); Anion Gap 1.9 mmol/L (3-11); BUN 11 mg/dL (7-18); Bilirubin, Total 0.72 mg/dL (0.2-1.0); CO2 34.1 mmol/L (21.0-32.0); Calcium 9.3 mg/dL (8.5-10.1); Chloride 100 mmol/L (98-107); Estimated GFR 84.05 (mL/min/1.73m2); FREE T4 0.82 ng/dL (0.76-1.46); Glucose 144 mg/dL (74-106); Magnesium 2.1 mg/dL (1.8-2.4); Potassium 4.2 mmol/L (3.5-5.1); Sodium 136 mmol/L (136-145); TSH 3.02 uIU/Ml (0.36-3.74); Total Protein 7.8 g/dL (6.4-8.2)
== END 2024-02-26 02:25 | disposition home or self-care (01) ==
PROVIDERS: Visit Provider Nurse Practitioner Family
DX: Z79.899 Other long term (current) drug therapy (principal); C34.92 Malignant neoplasm of unspecified part of left bronchus or lung
CPT/HCPCS: 36415; 80053; 83735; 84439; 84443; 85025

== ENCOUNTER 2024-03-16 12:51 | Outpatient (CLI) | payer MEDICAID, SELFPAY ==
[2024-03-16 11:28] LABS: Abs Immature Grans 0.02 10^3/uL (0.0-0.06); Absolute Basophil Count 0.08 10^3/uL (0.0-0.2); Absolute Eosinophil Count 0.28 10^3/uL (0.0-0.7); Absolute Neutrophil Count 5.32 10^3/uL (1.2-6.7); Basophils % 0.9 %; Eosinophils % 3.3 %; HCT 49.9 % (40.0-50.0); HGB 15.5 g/dL (13.5-17.5); Immature Grans % 0.2 %; Lymphocytes % 23.5 %; MCHC 31.1 % (32.0-36.0); MCV 84 fL (80-95); MPV 9.6 fL (8.0-11.0); Monocytes % 9.4 %; Neutrophils % 62.7 %; Platelet Count 205 10^3/uL (130-400); RBC 5.96 10^6/uL (4.36-5.78); RDW 13.1 % (11.8-14.1); RDW-SD 39.8 fL
[2024-03-16 12:02] LABS: ALT 24 U/L (16-63); AST 19 U/L (15-37); Albumin 3.4 g/dL (3.4-5.0); Alkaline Phosphatase 90 U/L (46-116); BUN 22 mg/dL (7-18); Bilirubin, Total 0.74 mg/dL (0.2-1.0); Chloride 105 mmol/L (98-107); Estimated GFR 84.05 (mL/min/1.73m2); FREE T4 0.88 ng/dL (0.76-1.46); Glucose 197 mg/dL (74-106); Potassium 4.4 mmol/L (3.5-5.1); Sodium 139 mmol/L (136-145); TSH 2.34 uIU/mL (0.36-3.74); Total Protein 7.5 g/dL (6.4-8.2)
== END 2024-03-16 12:52 | disposition home or self-care (01) ==
LOC: LBO 12:52
PROVIDERS: Visit Provider Nurse Practitioner Family
DX: C34.92 Malignant neoplasm of unspecified part of left bronchus or lung (principal); Z79.899 Other long term (current) drug therapy
CPT/HCPCS: 36415; 80053; 83735; 84439; 84443; 85025

== ENCOUNTER 2024-04-06 03:09 | Outpatient (CLI) | payer MEDICAID, SELFPAY ==
[2024-04-06 08:06] LABS: Abs Immature Grans 0.02 10^3/uL (0.0-0.06); Absolute Basophil Count 0.07 10^3/uL (0.0-0.2); Absolute Eosinophil Count 0.26 10^3/uL (0.0-0.7); Absolute Lymphocyte Count 1.97 10^3/uL (1.2-3.4); Absolute Monocyte Count 0.73 10^3/uL (0.1-0.8); Absolute Neutrophil Count 5.84 10^3/uL (1.2-6.7); Basophils % 0.8 %; Eosinophils % 2.9 %; HGB 15.2 g/dL (13.5-17.5); Immature Grans % 0.2 %; Lymphocytes % 22.2 %; MCV 84 fL (80-95); MPV 9.8 fL (8.0-11.0); Monocytes % 8.2 %; Neutrophils % 65.7 %; Platelet Count 226 10^3/uL (130-400); RBC 5.84 10^6/uL (4.36-5.78); RDW 13.2 % (11.8-14.1); RDW-SD 40.6 fL; WBC 8.89 10^3/uL (4.4-10.8)
[2024-04-06 08:31] LABS: ALT 22 U/L (16-63); AST 16 U/L (15-37); Albumin 3.2 g/dL (3.4-5.0); Alkaline Phosphatase 91 U/L (46-116); Anion Gap 2.1 mmol/L (3-11); BUN 23 mg/dL (7-18); Bilirubin, Total 0.45 mg/dL (0.2-1.0); CO2 29.9 mmol/L (21.0-32.0); CREATININE 1.1 mg/dL (0.70-1.30); Calcium 8.7 mg/dL (8.5-10.1); Chloride 107 mmol/L (98-107); Estimated GFR 74.96 (mL/min/1.73m2); FREE T4 0.78 ng/dL (0.76-1.46); Glucose 182 mg/dL (74-106); Magnesium 1.8 mg/dL (1.8-2.4); Potassium 4.8 mmol/L (3.5-5.1); Sodium 139 mmol/L (136-145); TSH 2.89 uIU/mL (0.36-3.74); Total Protein 7.1 g/dL (6.4-8.2)
== END 2024-04-06 03:10 | disposition home or self-care (01) ==
PROVIDERS: Visit Provider Nurse Practitioner Family
DX: C34.92 Malignant neoplasm of unspecified part of left bronchus or lung (principal); Z79.899 Other long term (current) drug therapy
CPT/HCPCS: 36415; 80053; 83735; 84439; 84443; 85025

== ENCOUNTER 2024-04-27 02:35 | Outpatient (CLI) | payer MEDICAID, SELFPAY ==
[2024-04-27 12:57] LABS: Abs Immature Grans 0.03 10^3/uL (0.0-0.06); Absolute Basophil Count 0.07 10^3/uL (0.0-0.2); Absolute Eosinophil Count 0.36 10^3/uL (0.0-0.7); Absolute Lymphocyte Count 1.92 10^3/uL (1.2-3.4); Absolute Monocyte Count 0.86 10^3/uL (0.1-0.8); Basophils % 0.7 %; Eosinophils % 3.8 %; HGB 15.4 g/dL (13.5-17.5); Immature Grans % 0.3 %; Lymphocytes % 20.1 %; MCH 26.2 pg (27.0-33.0); MCHC 31.4 % (32.0-36.0); MCV 84 fL (80-95); MPV 10.1 fL (8.0-11.0); Neutrophils % 66.1 %; Platelet Count 232 10^3/uL (130-400); RBC 5.87 10^6/uL (4.36-5.78); RDW 13.1 % (11.8-14.1); RDW-SD 39.9 fL; WBC 9.54 10^3/uL (4.4-10.8)
[2024-04-27 13:35] LABS: ALT 22 U/L (16-63); AST 12 U/L (15-37); Albumin 3.2 g/dL (3.4-5.0); Alkaline Phosphatase 90 U/L (46-116); Anion Gap 6.7 mmol/L (3-11); BUN 21 mg/dL (7-18); Bilirubin, Total 0.51 mg/dL (0.2-1.0); CO2 27.3 mmol/L (21.0-32.0); CREATININE 1.2 mg/dL (0.70-1.30); Calcium 8.5 mg/dL (8.5-10.1); Chloride 104 mmol/L (98-107); Estimated GFR 67.53 (mL/min/1.73m2); FREE T4 0.88 ng/dL (0.76-1.46); Glucose 196 mg/dL (74-106); Magnesium 1.9 mg/dL (1.8-2.4); Sodium 138 mmol/L (136-145); TSH 1.97 uIU/mL (0.36-3.74)
== END 2024-04-27 02:36 | disposition home or self-care (01) ==
PROVIDERS: Visit Provider Nurse Practitioner Family
DX: Z79.899 Other long term (current) drug therapy (principal); C34.92 Malignant neoplasm of unspecified part of left bronchus or lung
CPT/HCPCS: 36415; 80053; 83735; 84439; 84443; 85025

== ENCOUNTER 2024-05-18 03:03 | Outpatient (CLI) | payer MEDICAID, SELFPAY ==
[2024-05-18 10:10] LABS: Abs Immature Grans 0.03 10^3/uL (0.0-0.06); Absolute Basophil Count 0.06 10^3/uL (0.0-0.2); Absolute Eosinophil Count 0.28 10^3/uL (0.0-0.7); Absolute Lymphocyte Count 2.01 10^3/uL (1.2-3.4); Absolute Neutrophil Count 5.44 10^3/uL (1.2-6.7); Basophils % 0.7 %; Eosinophils % 3.2 %; HGB 15.8 g/dL (13.5-17.5); Immature Grans % 0.3 %; Lymphocytes % 23.1 %; MCH 26.2 pg (27.0-33.0); MCHC 31.6 % (32.0-36.0); MCV 83 fL (80-95); MPV 9.9 fL (8.0-11.0); Monocytes % 10.3 %; Neutrophils % 62.4 %; Platelet Count 249 10^3/uL (130-400); RDW-SD 39.4 fL; WBC 8.72 10^3/uL (4.4-10.8)
[2024-05-18 10:12] LABS: RBC 6.02 10^6/uL (4.36-5.78)
[2024-05-18 10:30] LABS: Diff Comment Agrees w/ Instrument; RBC Morphology Normal
[2024-05-18 10:37] LABS: ALT 25 U/L (16-63); AST 18 U/L (15-37); Albumin 3.3 g/dL (3.4-5.0); Alkaline Phosphatase 96 U/L (46-116); Anion Gap 7.8 mmol/L (3-11); BUN 14 mg/dL (7-18); Bilirubin, Total 0.56 mg/dL (0.2-1.0); CO2 29.2 mmol/L (21.0-32.0); Chloride 103 mmol/L (98-107); Estimated GFR 83.52 (mL/min/1.73m2); FREE T4 0.91 ng/dL (0.76-1.46); Glucose 173 mg/dL (74-106); Magnesium 1.9 mg/dL (1.8-2.4); Potassium 4.3 mmol/L (3.5-5.1); Sodium 140 mmol/L (136-145); TSH 2.61 uIU/mL (0.36-3.74); Total Protein 7.3 g/dL (6.4-8.2)
== END 2024-05-18 03:04 | disposition home or self-care (01) ==
PROVIDERS: Visit Provider Nurse Practitioner Family
DX: C34.92 Malignant neoplasm of unspecified part of left bronchus or lung (principal); Z79.899 Other long term (current) drug therapy
CPT/HCPCS: 36415; 80053; 83735; 84439; 84443; 85025

== ENCOUNTER 2024-06-09 02:58 | Outpatient (CLI) | payer MEDICARE, MEDICAID, SELFPAY ==
[2024-06-09 11:53] LABS: Abs Immature Grans 0.03 10^3/uL (0.0-0.06); Absolute Basophil Count 0.09 10^3/uL (0.0-0.2); Absolute Eosinophil Count 0.48 10^3/uL (0.0-0.7); Absolute Lymphocyte Count 2.13 10^3/uL (1.2-3.4); Absolute Monocyte Count 0.86 10^3/uL (0.1-0.8); Absolute Neutrophil Count 6.92 10^3/uL (1.2-6.7); Basophils % 0.9 %; Eosinophils % 4.6 %; HCT 50.5 % (40.0-50.0); HGB 16.5 g/dL (13.5-17.5); Immature Grans % 0.3 %; Lymphocytes % 20.3 %; MCH 26.6 pg (27.0-33.0); MCHC 32.7 % (32.0-36.0); MCV 82 fL (80-95); MPV 9.9 fL (8.0-11.0); Monocytes % 8.2 %; Neutrophils % 65.7 %; Platelet Count 250 10^3/uL (130-400); RDW 13.2 % (11.8-14.1); RDW-SD 38.8 fL; WBC 10.51 10^3/uL (4.4-10.8)
[2024-06-09 12:19] LABS: ALT 22 U/L (16-63); AST 14 U/L (15-37); Albumin 3.5 g/dL (3.4-5.0); Alkaline Phosphatase 103 U/L (46-116); Anion Gap 2.7 mmol/L (3-11); BUN 21 mg/dL (7-18); Bilirubin, Total 0.43 mg/dL (0.2-1.0); CO2 31.3 mmol/L (21.0-32.0); CREATININE 1.1 mg/dL (0.70-1.30); Calcium 9.4 mg/dL (8.5-10.1); Chloride 104 mmol/L (98-107); FREE T4 0.86 ng/dL (0.76-1.46); Glucose 149 mg/dL (74-106); Potassium 4.3 mmol/L (3.5-5.1); Sodium 138 mmol/L (136-145); TSH 2.86 uIU/mL (0.36-3.74); Total Protein 7.6 g/dL (6.4-8.2)
== END 2024-06-09 02:59 | disposition home or self-care (01) ==
PROVIDERS: Visit Provider Nurse Practitioner Family
DX: C34.92 Malignant neoplasm of unspecified part of left bronchus or lung (principal); Z79.899 Other long term (current) drug therapy
CPT/HCPCS: 36415; 80053; 83735; 84439; 84443; 85025

== ENCOUNTER 2024-07-02 13:35 | Outpatient (CLI) | payer MEDICARE, MEDICAID, SELFPAY ==
--- NOTE | 2024-07-02 | DI.CT_ITS ---
Exam(s) CT CHEST W EXAM: CT CHEST W CLINICAL HISTORY: LT LUNG CANCER C34.92 ASSESS TREATMENT RESPONSE TECHNIQUE: Imaging Protocol: Axial computed tomography images with coronal and sagittal reformatted images were created and reviewed. Computer aided detection (CAD) was utilized. CONTRAST MATERIAL: Intravenous: Omnipaque 350Contrast volume:70 mL. COMPARISON: CT CT CHEST W/CONTRAST from 01/07/[address] CHEST W/CONTRAST from 04/08/2024 FINDINGS: Tracheobronchial tree: Patent where visualized. No evidence of bronchiectasis. Pulmonary parenchyma: There is a stable 1.5 x 1.1 cm nodule in the right middle lobe. It is unchange d compared to the prior examinations. Calcified granuloma are present. The partially calcified nodu le in the lingula abutting the diaphragm is unchanged (series 8, image 120). There has been no taylor e in the nodules along the pleural surface posteriorly in the left hemithorax or the nodules in the l eft lower lobe against the diaphragm. No new pulmonary nodules are seen. No focal consolidating inf iltrates are present. The fissural thickening on the left is unchanged. Mediastinum and Na: No dominant adenopathy or fluid collection. The esophagus is unremarkable. Thyroid gland: Unremarkable. Pleura: No effusion or pneumothorax. Heart: The heart is not dilated. Coronary artery calcification is present. No pericardial effusion. Aorta: Thoracic aorta non-dilated. Atherosclerotic calcification is present. No evidence of dissecti on. Pulmonary arteries: No pulmonary emboli are identified. Upper abdomen: Unremarkable. Lymph nodes: No significant axillary or supraclavicular adenopathy. Bones: Within normal limits for the patient's age. Soft tissues: Unremarkable. IMPRESSION: 1. Stable appearance of the chest since 04/08/2024. 2. No acute pulmonary process. RADIATION DOSE DELIVERED: 223.87mGy.cm Total DLP DATA REPOSITORY: All CT scans at this facility are submitted to the National Radiology Data Registry (NRDR) Dose Index Registry (DIR) with the [employer] ([employer]). RADIATION OPTIMIZATION: All CT scans at this facility use at least one of these dose optimization te chniques: automated exposure control; mA and/or kV adjustment per patient size (includes targeted exa ms where dose is matched to clinical indication); or iterative reconstruction.
[2024-07-02] MEDS: Omnipaque 350 MG/ML 100 ML BTL 70 ML IJ (11:19)
[2024-07-02] MEDS: Normal Saline - Diluent 50 ML VIAL IJ (11:19)
== END 2024-07-02 13:55 ==
LOC: DI 13:36
PROVIDERS: Visit Provider Nurse Practitioner Family
DX: C34.92 Malignant neoplasm of unspecified part of left bronchus or lung (principal)
CPT/HCPCS: 71260; J3490

== ENCOUNTER → 2024-10-01 09:02 | Outpatient (BNVA) | payer MEDICARE, MEDICAID, SELFPAY | PROVIDERS: PCP Family Medicine; Referring Provider Family Medicine; Visit Provider Physician Assistant Surgical | DX: J44.9 Chronic obstructive pulmonary disease, unspecified (principal); I50.9 Heart failure, unspecified; C34.90 Malignant neoplasm of unspecified part of unspecified bronchus or lung | CPT/HCPCS: 36415; 94618; 99204; 99205 ==

== ENCOUNTER 2024-10-01 12:04 | Outpatient (REF) | payer MEDICARE, MEDICAID, SELFPAY ==
[2024-10-01 12:24] LABS: Abs Immature Grans 0.02 10^3/uL (0.0-0.06); Absolute Basophil Count 0.05 10^3/uL (0.0-0.2); Absolute Eosinophil Count 0.26 10^3/uL (0.0-0.7); Absolute Lymphocyte Count 1.49 10^3/uL (1.2-3.4); Absolute Neutrophil Count 5.77 10^3/uL (1.2-6.7); Basophils % 0.6 %; Eosinophils % 3.1 %; HCT 52.8 % (40.0-50.0); HGB 16.1 g/dL (13.5-17.5); Immature Grans % 0.2 %; MCH 26.1 pg (27.0-33.0); MCHC 30.5 % (32.0-36.0); MCV 85 fL (80-95); MPV 10.4 fL (8.0-11.0); Monocytes % 8.4 %; Neutrophils % 69.7 %; Platelet Count 231 10^3/uL (130-400); RBC 6.18 10^6/uL (4.36-5.78); RDW 13.2 % (11.8-14.1); RDW-SD 40.8 fL; WBC 8.29 10^3/uL (4.4-10.8)
== END 2024-10-01 12:05 | disposition home or self-care (01) ==
LOC: LBN 12:04
PROVIDERS: PCP Family Medicine; Visit Provider Physician Assistant Surgical
DX: J44.9 Chronic obstructive pulmonary disease, unspecified (principal); I50.9 Heart failure, unspecified; C34.90 Malignant neoplasm of unspecified part of unspecified bronchus or lung
CPT/HCPCS: 80053; 83880; 85025

== ENCOUNTER → 2025-01-04 10:44 | Outpatient (BNVA) | payer MEDICARE, MEDICAID, SELFPAY | PROVIDERS: PCP Family Medicine; Referring Provider Family Medicine; Visit Provider Internal Medicine Pulmonary Disease | DX: J44.89 Other specified chronic obstructive pulmonary disease (principal); C34.90 Malignant neoplasm of unspecified part of unspecified bronchus or lung; Z87.09 Personal history of other diseases of the respiratory system; Z23 Encounter for immunization | CPT/HCPCS: 99214; 90471; 90684 ==

== ENCOUNTER → 2025-02-04 13:38 | Outpatient (BNVA) | payer MEDICARE, MEDICAID, SELFPAY | PROVIDERS: PCP Family Medicine; Referring Provider Family Medicine; Visit Provider Internal Medicine Pulmonary Disease | DX: J30.9 Allergic rhinitis, unspecified (principal) | CPT/HCPCS: 96372 ==

== ENCOUNTER → 2025-03-08 10:40 | Outpatient (BNVA) | payer MEDICARE, MEDICAID, SELFPAY | PROVIDERS: PCP Family Medicine; Referring Provider Family Medicine; Visit Provider Internal Medicine Pulmonary Disease | DX: J44.89 Other specified chronic obstructive pulmonary disease (principal); C34.92 Malignant neoplasm of unspecified part of left bronchus or lung; Z87.09 Personal history of other diseases of the respiratory system; Z87.891 Personal history of nicotine dependence | CPT/HCPCS: 99214 ==